=== PATIENT | male | born 1985 | race African-American/Black ===

== ENCOUNTER 2017-01-18 20:50 | Emergency (ER) | payer OTHER ==
[~2017-01-18] VITALS: Ht 198.1 cm; Wt 103.1 kg
[2017-01-18 23:23] VITALS: BP 119/65
== END 2017-01-18 23:38 | disposition home or self-care (01) ==
LOC: EXP 20:50 → EME 20:50 → EXP 23:38
DX: S01.81XA Laceration without foreign body of other part of head, initial encounter (principal); S93.111A Dislocation of interphalangeal joint of right great toe, initial encounter; W03.XXXA Other fall on same level due to collision with another person, initial encounter; Y93.67 Activity, basketball; Z23 Encounter for immunization; F17.200 Nicotine dependence, unspecified, uncomplicated
CPT/HCPCS: 73660; 99281; 99284; S0020

== ENCOUNTER 2017-10-16 09:43 | Emergency (ER) | payer OTHER ==
[~2017-10-16] VITALS: Ht 198.1 cm; Wt 104.6 kg
[2017-10-16 10:34] LABS: HEMATOCRIT 43.8 % (38.0-50.0); HEMOGLOBIN 15.3 G/DL (12.5-16.6); MCH 31.3 PG (29.0-34.0); MCHC 34.9 G/DL (30.0-36.0); MCV 89.6 FL (86-99); PLATELET COUNT 247 K/uL (156-360); RBC DIS.WIDTH-CV 12.8 % (11.8-14.6); RBC DIS.WIDTH-SD 42.3 % (39-53); RED BLOOD COUNT 4.89 M/uL (4.00-5.50); WHITE BLOOD COUNT 8.1 K/uL (4.1-10.2)
[2017-10-16 11:00] LABS: ALBUMIN 4.5 g/dL (3.2-4.8); CHLORIDE 106 mEq/L (99-109); SODIUM 137 mEq/L (136-147)
[2017-10-16 11:03] LABS: GLUCOSE 105 mg/dL (70-99); TOTAL PROTEIN 8.1 g/dL (6.4-8.3)
[2017-10-16 11:05] LABS: TOTAL BILIRUBIN 0.2 mg/dL (0.0-1.0)
[2017-10-16 11:06] LABS: ALKALINE PHOSPHATASE 72 IU/L (3-129); GFR ESTIMATE (CALCULATED) > 59 mL/min/ (58.99-99999)
[2017-10-16 11:08] LABS: AST (GOT) 32 IU/L (2-34); UREA NITROGEN (BUN) 17 mg/dL (9-23)
[2017-10-16 11:09] LABS: ALT (GPT) 52 IU/L (3-49)
[2017-10-16 12:30] LABS: APPEARANCE CLEAR ((CLEAR)); BILIRUBIN NEGATIVE; BLOOD NEGATIVE; COLOR YELLOW ((YELLOW)); GLUCOSE (STRIP) NEGATIVE; KETONES NEGATIVE; LEUKOCYTES NEGATIVE; NITRITE NEGATIVE; PROTEIN (STRIP) NEGATIVE; SPECIFIC GRAVITY 1.021 (1.000-1.030); UCUL ADDED? NO; UROBILINOGEN 0.2 MG/DL (0.2-1.0)
[2017-10-16] MEDS ORDERED: ZOFRAN ODT4 MG PO (12:42)
[2017-10-16 12:59] VITALS: BP 114/72
== END 2017-10-16 13:02 | disposition home or self-care (01) ==
LOC: EME 09:43
DX: R11.2 Nausea with vomiting, unspecified (principal); R19.7 Diarrhea, unspecified; F17.200 Nicotine dependence, unspecified, uncomplicated
CPT/HCPCS: 80053; 81003; 85027; 99281; 99284